=== PATIENT | female | born 1980 | race Caucasian/White ===

== ENCOUNTER 2017-02-27 08:00 | Observation (INO) | payer BC ==
[~2017-02-27 08:00] MED LIST: ceFAZolin 2 GM/SWFI 2 GM/20 ML SYR IVP ONE
[2017-08-27] MEDS ORDERED: LR 1,000 ML IV ONE (06:19)
[2017-08-27] MEDS ORDERED: LIDOCAINE 1% 2 ML INJ ID PRN (06:19)
[2017-08-27] MEDS ORDERED: LIDOCAINE 1% 2 ML INJ ONE (06:24)
[2017-08-27 06:47] LABS: PLATELET COUNT 203 10^3/uL (150-400)
[2017-08-27] MEDS ORDERED: MIDAZOLAM 2 MG/2 ML VIAL IVP ONE (06:56)
[2017-08-27] MEDS ORDERED: SCOPOLAMINE HYDROBROMIDE 1 MG/3 DAYS PATCH TD SCH (07:00)
[2017-08-27] MEDS ORDERED: VASOPRESSIN 20 UNIT/ML VIAL ONE (07:03)
--- NOTE | 2017-08-27 07:08 | PDANEPAE ---
ANE History of Present Illness TVH/BSO prophylactic after early aggressive breast Ca ANE Past Medical History - Cardiovascular History Hx Hypertension: No Hx Arrhythmias: No Hx Chest Pain: No Hx Coronary Artery / Peripheral Vascular Disease: No Hx CHF / Valvular Disease: No Hx Palpitations: No - Pulmonary History Hx COPD: No Hx Asthma/Reactive Airway Disease: Yes Hx Recent Upper Respiratory Infection: No Hx Oxygen in Use at Home: No Hx Sleep Apnea: No Sleep Apnea Screening Result - Last Documented: Negative Pulmonary History Comment: ASTHMA HAS EMERGENCY INHALER. 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 ANXIETY-significant - Cancer History Hx Cancer: Yes Cancer History Comment: BREAST CA DIAGNOSED 2013 - Congenital Disorder History Hx Congenital Disorders: No - GI History GERD: mild Hx Gastrointestinal Disorders: Yes Gastrointestinal History Comment: REFLUX - Other Health History Other Health History: BRUISES EASILY - Chronic Pain History Chronic Pain: No - Surgical History Prior Surgeries: ALEENA MASTECTOMY WITH RECONSTRUCTION. REMVL UPPER LT WISDOM TOOTH. PORT PLACEMENT X 2 LAST 11/2013. UPPER ENDOSCOPIES 2011. BRONCHOSCOPY 2011. RIGHT BREAST BIOPSY 09/22/13. LYMPH NODE BIOPSIES 09/22/13. ANE Review of Systems Review of Systems: - Exercise capacity METS (RN): 4 METS ANE Patient History - Allergies Allergies/Adverse Reactions: acetaminophen [From Percocet] Allergy (Verified 08/26/17 12:10) cashew nut Allergy (Verified 08/26/17 12:10) codeine Allergy (Verified 08/26/17 12:10) levofloxacin Allergy (Verified 08/26/17 12:10) ORAL SWELLING oxycodone HCl [From Percocet] Allergy (Verified 08/26/17 12:10) Penicillins Allergy (Verified 08/26/17 12:10) Swelling/neck,face,throat Quinolones Allergy (Verified 08/26/17 12:10) shellfish derived Allergy (Verified 08/26/17 12:10) ORAL SWELLING tree nut [Pecans] Allergy (Verified 08/26/17 12:10) walnut Allergy (Verified 08/26/17 12:10) BERRIES Allergy (Uncoded 02/12/17 16:40) - Home Medications Home medications: home medication list seen and reviewed Home Medications: Albuterol [Proventil Inhaler HFA (*)] 1 - 2 puffs IH Q4H PRN 10/20/13 [Last Taken 2 Years Ago ~08/28/15] LORazepam [Ativan (*)] 0.5 mg PO TID PRN 10/20/13 [Last Taken 1 Week Ago ~] EPINEPHrine [Epipen 0.3 MG] 0.3 mg IM ONCE PRN 02/26/14 [Last Taken 2 Years Ago ~08/28/15] Anastrozole [Arimidex 1 mg (*)] 1 mg PO HS 02/12/17 [Last Taken 08/26/17 22:00] Docusate Sodium [Colace 100 MG (*)] 100 mg PO BID 08/26/17 [Last Taken 08/26/17 22:00] - NPO status NPO Status: no food or drink >8 hours NPO Since - Liquids (Date): 08/26/17 NPO Since - Liquids (Time): 22:30 NPO Since - Solids (Date): 08/26/17 NPO Since - Solids (Time): 18:00 - Anes Hx Anes Hx: no prior problems - Smoking Hx Smoking Status: Never smoked - Alcohol Use Alcohol Use: Rarely - Family Anes Hx Family Anes Hx: none Family Hx Anesthesia Complications: NONE ANE Labs/Vital Signs - Labs Result Diagrams: 08/27/17 06:35 - Vital Signs Blood Pressure: 102/65 Heart Rate: 85 Respiratory Rate: 16 O2 Sat (%): 95 Height: 165.1 cm Weight: 68.039 kg ANE Physical Exam - Airway Neck exam: FROM Mallampati Score: Class 1 Mouth exam: normal dental/mouth exam - Pulmonary Pulmonary: no respiratory distress - Cardiovascular Cardiovascular: regular rate and rhythym - ASA Status ASA Status: II ANE Anesthesia Plan Anesthesia Plan: GA w LMA, spinal (morphine for post op pain)
[2017-08-27] MEDS ORDERED: ceFAZolin 2 GM/SWFI 2 GM/20 ML SYR IVP ONE (07:25)
--- NOTE | 2017-08-27 07:27 | PDHPUP ---
History & Physical Update H&P update statement: This history and physical update is based on an assessment of the patient which was completed after admission or registration (within 24 hours), but prior to the surgery/procedure. H&P update: H&P reviewed & patient examined, no change in patient's condition since H&P completed
[2017-08-27] MEDS ORDERED: ceFAZolin 2 GM/DEXTROSE 100 ML IV ONE (07:30)
[2017-08-27] MEDS ORDERED: fentaNYL 100 MCG/2 ML INJ ONE ×2 (07:31→09:20)
[2017-08-27] MEDS ORDERED: PROPOFOL/EMULSION 500 MG/50 ML BOTTLE IV ONE (07:31)
[2017-08-27] MEDS ORDERED: morphINE PF 5 MG/10 ML INJ ONE (07:32)
[2017-08-27] MEDS ORDERED: LIDOCAINE 2% JELLY 5 ML TUBE ONE (07:39)
[2017-08-27] MEDS ORDERED: DEXAMETHASONE 4 MG/ML VIAL ONE ×2 (07:45)
[2017-08-27] MEDS ORDERED: ONDANSETRON 4 MG/2 ML VIAL ONE ×3 (07:45→09:20)
[2017-08-27] MEDS ORDERED: ceFAZolin 1 GM VIAL ONE ×2 (07:45)
[2017-08-27] MEDS ORDERED: PROMETHAZINE HCL 25 MG/ML INJ IVP PRN (08:49)
[2017-08-27] MEDS ORDERED: MEPERIDINE 25 MG/0.5 ML AMP IVP PRN (08:49)
[2017-08-27] MEDS ORDERED: ALBUTEROL 3 ML DEYVIAL IH PRN (08:49)
[2017-08-27] MEDS ORDERED: LR 500 ML IV PRN (08:49)
[2017-08-27] MEDS ORDERED: DEXAMETHASONE 4 MG/ML VIAL IVP PRN (08:49)
[2017-08-27] MEDS ORDERED: NALOXONE HCL 0.4 MG/ML INJ IVP PRN (08:49)
[2017-08-27] MEDS ORDERED: PHENYLEPHRINE HCL 100 MCG/ML SYR IVP PRN (08:49)
[2017-08-27] MEDS ORDERED: oxyCODONE IR 5 MG TAB PO PRN (08:49)
[2017-08-27] MEDS ORDERED: LABETALOL HCL 5 MG/ML 20 ML MDV IVP PRN (08:49)
[2017-08-27] MEDS ORDERED: METOCLOPRAMIDE 10 MG/2 ML VIAL IVP PRN (08:49)
[2017-08-27] MEDS: fentaNYL 100 MCG/2 ML INJ IVP PRN ×3 (09:23→09:46)
--- NOTE | 2017-08-27 09:23 | POSTOPPROG ---
Post Op Note Date of Operation: 08/27/17 Surgeon: Lily Quintero Cardiopulmonary Physical Therapist: Eligio REEVES Anesthesiologist: Osmani Carter Anesthesia: LMA, Spinal Pre-op Diagnosis: breast cancer, needs prophylactic BSO Post-op Diagnosis: same Indication: same Procedure: TVH/BSO Findings: nl pelvic organs Inf/Abcess present in the surg proc area at time of surgery?: No EBL: 50-100
[2017-08-27] MEDS: ONDANSETRON 4 MG/2 ML VIAL IVP PRN ×2 (09:24→09:36)
[2017-08-27] MEDS ORDERED: LR 1,000 ML IV SCH (09:30)
[2017-08-27] MEDS ORDERED: KETOROLAC 30 MG/1 ML SDV ONE (09:54)
[2017-08-27] MEDS ORDERED: PROMETHAZINE HCL 25 MG/ML INJ ONE (10:00)
[2017-08-27] MEDS ORDERED: KETOROLAC 30 MG/1 ML SDV IVP ONE (10:00)
--- NOTE | 2017-08-27 10:23 | GOP ---
[f rep st] OPERATIVE REPORT DATE OF OPERATION: 08/27/2017 SURGEON: Lily Quintero MD DIRECTOR SOFTWARE: Regi Bradley [employer]. ANESTHESIA: Spinal morphine for postop pain control and general with LMA. ANESTHESIOLOGIST: Osmani Carter MD. PREOPERATIVE DIAGNOSIS: Early age breast cancer, need for therapeutic and prophylactic bilateral xander pingo-oophorectomy. The patient desires a hysterectomy as well. POSTOPERATIVE DIAGNOSIS: Early age breast cancer, need for therapeutic and prophylactic bilateral sa lpingo-oophorectomy. The patient desires a hysterectomy as well. PROCEDURE PERFORMED: Total vaginal hysterectomy with bilateral salpingo-oophorectomy. FINDINGS: Normal bilateral ovaries, normal fallopian tubes, normal uterus, normal cervix. ESTIMATED BLOOD LOSS: Minimal. INDICATIONS: Patient is a 37-year-old, G3, P3, who was diagnosed at the age of 33 [address] cancer. 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 Sapphire Quiroga . DESCRIPTION OF PROCEDURE: With informed consent signed, patient taken to the operating room, placed under spinal then general anesthesia, placed in the high dorsal lithotomy position, prepped and drape d in the usual sterile fashion. A Lang catheter placed. Tenaculum placed on the cervix for tractio n and a posterior colpotomy was performed using the Seymour scissors. The peritoneal space was entered sharply and the peritoneum was attached to the posterior vaginal cuff edge using a running locking ba seball stitch for hemostasis. Next, the uterosacral ligament on the left was identified, clamped, cu t, suture ligated, then tagged and then the cardinal ligament on the left, clamped, cut, suture ligat ed. The same was done on the right. The uterine vessels were clamped on each side, cut and suture l igated. The anterior peritoneum was opened sharply and then the edges of the broad ligament were cla mped, cut, suture ligated. The uterosacral ligament on each side was clamped, cut and suture ligated and tagged and the right ovary was grasped with a [place]. The infundibulopelvic ligament was clamp ed, cut, and the ovary and fallopian tube handed off and then this pedicle was free tied and suture l igated and inspected for hemostasis and this was noted. The exact same process was done on the left. Again, hemostasis was noted. Next, a Chaudhary culdoplasty was performed and this was done grasping t he 6 o'clock edge of the vaginal cuff with a 2-0 Vicryl going over to grab the left uterosacral ligam ent pedicle grasping several bites in the posterior peritoneum and then the right uterosacral ligamen t pedicle and then out the original entry point. This was tied down obliterating the posterior cul-d e-sac and then the uterosacral ligaments were tied. The pedicles were tied together again for suppor t and then the vaginal cuff was closed using 2-0 Vicryl [id number] sutures. Hemostasis again wa s noted. Lap and instrument count were correct x2. All the pedicles were cut. Weighted speculum re moved and patient placed in supine position, awakened in the operating room, taken to the recovery ro om in stable condition. Tolerated the procedure well. COMPLICATIONS: None. /[id number]/MODL
--- NOTE | 2017-08-27 12:22 | POSTANESTH ---
Post Anesthetic Evaluation Cardiovascular Status: Normal, Stable Respiratory Status: Tx Decrease in SpO2 (O2 by NC no issues, just a bit sleepy) Level of Consciousness/Mental Status: Can Participate in Eval, Mildly Sleepy, Arousable Pain Control: Adequate, Prn Tx Ordered Nausea/Vomiting Control: Adequate, Prn Tx Ordered Complications Possibly Related to Anesthesia: None Noted
[2017-08-27] MEDS: IBUPROFEN 600 MG TAB PO SCH ×2 (15:43→23:48)
[2017-08-27] MEDS ORDERED: ANASTROZOLE 1 MG TAB PO SCH (23:30)
[2017-08-27] MEDS ORDERED: DOCUSATE SODIUM 100 MG CAP PO SCH (23:30)
[2017-08-28] MEDS: ONDANSETRON 4 MG/2 ML VIAL IVP PRN ×2 (05:53→12:28)
[2017-08-28] MEDS: traMADol 50 MG TAB PO PRN ×2 (06:18→12:28)
[2017-08-28] MEDS: IBUPROFEN 600 MG TAB PO SCH ×2 (08:03→13:36)
[2017-08-28] MEDS ORDERED: DOCUSATE SODIUM 100 MG CAP PO SCH (09:00)
--- NOTE | 2017-08-28 11:32 | SOAPPROG ---
SOAP Progress Note Assessment/Plan: Assessment:pod #1 doing well , ambulating tolerating regular diet , no bleeding and fair pain control Plan:D/C home , meds written tramadol, zofran and motrin , pt to f/u next week and precautions given 08/28/17 11:29 Subjective: took 1/2 tramadol and did well , also taking motrin , having flatus but no BM Objective: lungs CTA , abd soft with pos BS and no vagianl bleeding Vital Signs Temp Pulse Resp BP Pulse Ox 36.6 C 62 16 80/55 L 96 08/28/17 09:14 08/28/17 09:14 08/28/17 09:14 08/28/17 09:14 08/28/17 09:14 Laboratory Results 08/28/17 06:10 08/27/17 08/28/17 08/29/17 05:59 05:59 05:59 Intake Total 3450 Output Total 2600 400 Balance 850 -400 - Time Spent With Patient Time Spent With Patient: abd soft pos BS no vaginal bleeding and lungs CTA ICD10 Worksheet Patient Problems: Problems Problem Status Onset Cellulitis of neck Acute Infection of central venous catheter Acute Neoplasm of breast, female, malignant Acute Neutropenia associated with infection Acute Thrombocytopenia due to drugs Acute
[2017-08-28] MEDS ORDERED: traMADol 50 MG TAB ONE (12:20)
[2017-08-28 12:21] VITALS: BP 88/58
[2017-08-28] MEDS ORDERED: ANASTROZOLE 1 MG TAB PO SCH (21:00)
== END 2017-08-28 14:30 | disposition home or self-care (01) ==
LOC: F3E 08-27 06:09 → FOB 08-27 11:05
PROVIDERS: ADMIT Obstetrics & Gynecology Gynecology; ATTEND Obstetrics & Gynecology Gynecology
PROC: 0UT27ZZ Resection of Bilateral Ovaries, Via Natural or Artificial Opening (ICD-10-PCS; principal; 2017-08-27 07:15)
PROC: 0UT97ZZ Resection of Uterus, Via Natural or Artificial Opening (ICD-10-PCS; principal; 2017-08-27 07:15)
PROC: 0UT77ZZ Resection of Bilateral Fallopian Tubes, Via Natural or Artificial Opening (ICD-10-PCS; principal; 2017-08-27 07:15)
DX: Z40.02 Encounter for prophylactic removal of ovary(s) (principal); Z40.03 Encounter for prophylactic removal of fallopian tube(s); Z40.09 Encounter for prophylactic removal of other organ; C50.919 Malignant neoplasm of unspecified site of unspecified female breast
CPT/HCPCS: 58262; G0378; J0690; J1100; J1885; J2250; J2274; J2405; J2550; J2704; J3010

== ENCOUNTER → 2017-05-20 | Outpatient (CLI) | payer BC | LOC: CIMAGING 16:15 | PROVIDERS: ATTEND Nurse Practitioner | DX: R05 Cough (principal); Z85.3 Personal history of malignant neoplasm of breast | CPT/HCPCS: 71046-PO ==

== ENCOUNTER → 2018-01-03 | Outpatient (CLI) | payer BC | LOC: BRMIMAGING 14:52 | PROVIDERS: ATTEND Nurse Practitioner | DX: Z13.820 Encounter for screening for osteoporosis (principal); M85.89 Other specified disorders of bone density and structure, multiple sites; C50.919 Malignant neoplasm of unspecified site of unspecified female breast ==